=== PATIENT | male | born 1975 | race Caucasian/White ===

== ENCOUNTER 2021-10-09 05:32 | Emergency (ER) | payer OTHER, SELFPAY ==
--- NOTE | ~2021-10-09 | XR_ITS ---
EXAMINATION: XR HAND, LEFT CLINICAL INFORMATION: Middle finger pain COMPARISON: None TECHNIQUE: PA, lateral, and oblique views of the left hand. XR/XR hand LT 2V FINDINGS/IMPRESSION: There is a tiny osseous density adjacent to the volar base of the third middle phalanx, which could reflect a small avulsed fracture fragment; clinical correlation recommended at this site. No additional focal osseous abnormality is seen. Articular alignment throughout the hand is anatomic. No significant focal soft tissue abnormality.
--- NOTE | ~2021-10-09 | CT_ITS ---
EXAMINATION: CT HEAD WITHOUT CONTRAST CLINICAL INFORMATION: Fall, headache COMPARISON: None TECHNIQUE: Contiguous axial imaging was performed from the skull base to vertex without intravenous administration of contrast. This CT examination was performed using dose optimization techniques as appropriate, variously including the following: *Automated exposure control *Adjustment of mA and/or kV according to patient size (this includes techniques or standardized protocols for targeted exams where dose is matched to indication/reason for exam; i.e. extremities or head) *Use of iterative reconstruction technique DLP: 774 mGy-cm FINDINGS: There is no evidence of acute intracranial hemorrhage or territorial infarction. No abnormal mass effect or midline shift is seen. Nunez to white matter differentiation is well preserved. No extra-axial fluid collections are identified. The ventricles are normal in size. There is no abnormal attenuation within the brain parenchyma. The osseous structures and soft tissues are normal. There is slight mucosal thickening of the maxillary sinuses. The mastoid air cells are well-aerated. CT/CT head/brain wo con IMPRESSION: No acute intracranial pathology.
--- NOTE | 2021-10-09 05:52 | PC.NURSE ---
at bedside for primary eval.
--- NOTE | 2021-10-09 05:59 | ED_ITS ---
HPI - General Adult General Chief complaint: Fall Stated complaint: Head/Hand Pain S/P Fall 10/08/21 Time Seen by Provider: 10/09/21 05:50 Source: patient Mode of arrival: ambulatory Limitations: no limitations History of Present Illness HPI narrative: Patient comes to the emergency room complaining of headache after a fall and left hand pain. Patient states that he was walking down the stairs, it was carpeted, slippery, patient felt walking down words, hit the back of his head with the stairs, also states he hurt his middle finger of the left hand. Patient denies losing consciousness, no vomiting. Patient complaining of headache. Patient has not had any medication headache. Patient denies being on blood thinners Related Data Previous Rx's Medication Instructions Recorded ibuprofen 600 mg tablet 600 mg PO Q6H PRN #14 tab 10/09/21 Allergies Allergy/AdvReac Type Severity Reaction Status Date / Time No Known Allergies Allergy Verified 10/09/21 06:08 Review of Systems Review of Systems: Constitutional : No Weight loss, No Fever, No Chills, No Night Sweats, No Fatigue, No Malaise ENT/Mouth : No Hearing loss, No Ear Pain, No Nasal Congestion, No Sinus Pain, No Hoarseness, No sore throat, No Rhinorrhea, No Swallowing Difficulty Eyes: No Eye Pain, No Swelling, No Redness, No Foreign Body, No Discharge, No Vision Changes Cardiovascular : No Chest Pain, No SOB, No Dyspnea on Exertion, No Orthopnea, No Edema, No Palpitations Respiratory : No Cough, No Sputum, No Wheezing, No Smoke Exposure, No Dyspnea Gastrointestinal : No Nausea, No Vomiting, No Diarrhea, No Constipation, No abdominal Pain, No Hematochezia, No Melena Genitourinary : no irregular bleeding, No Dysuria, No Urinary Frequency, No Hematuria, No Urinary Incontinence, No Urgency, No Flank Pain, No Urinary Flow Changes, No Hesitancy Musculoskeletal : Complaining of left middle finger pain after a fall, No Myalgias, No Joint Swelling Skin : No Skin Lesions, No rash Neuro : No Weakness, No Numbness, No Paresthesias, No Loss of Consciousness, No Dizziness, patient complaining of headache after a fall Psych : No Anxiety/Panic, No Depression, No SI/HI/AH/VH, No Social Issues, Heme/Lymph: No Bruising, No Bleeding,No Lymphadenopathy Endocrine : No Polyuria, No Polydipsia, No Temperature Intolerance [facility] Social History Social History Advance Directives: No Advance Directives Information Provided: No Physical Exam Vital Signs: Vital Signs: Last Vital Signs Temp 97.1 F 10/09/21 06:05 Pulse 65 10/09/21 06:05 Resp 18 10/09/21 06:05 BP 136/82 10/09/21 06:05 Pulse Ox 100 10/09/21 06:05 Body Mass Index 24.3 Const: Other: Appearance: Alert. Oriented X3. No acute distress. Eyes: Pupils equal, round and reactive to light. ENT: Pharynx normal. Neck: Normal inspection. Neck supple. No lymph nodes noted. No crepitus, no cervical spine tenderness, no palpable step-offs CVS: Normal heart rate and rhythm. Pulses normal. Normal S1 and S2 Respiratory: No respiratory distress. Breath sounds normal. No Wheezing. No rales Abdomen: Soft and nontender. No rigidity. No distention. Skin: Skin warm and dry. Normal skin color. Normal skin turgor. Extremities: No lower extremity edema. Left middle finger looks slightly swollen, patient able to flex and extend all fingers and wrist. Neuro: Oriented X 3. No motor deficit. No sensory deficit. Moving all extermities. No slurred speech. Course Course Course Narrative: I discussed the CT scan and x-ray findings with the patient, patient may have a small avulsed fracture fragment in the 3rd digit on the left hand. Patient's finger was splinted. Patient instructed to follow-up with orthopedics. Patient states he will likely follow up in [place], [place] close to where he lives. Medical Decision Making Imaging Data Hand x-ray: Radiologist's impression: XR/XR hand LT 2V FINDINGS/IMPRESSION: There is a tiny osseous density adjacent to the volar base of the third middle phalanx, which could reflect a small avulsed fracture fragment; clinical correlation recommended at this site. No additional focal osseous abnormality is seen. Articular alignment throughout the hand is anatomic. No significant focal soft tissue abnormality. CT scan - head: Radiologist's impression: FINDINGS: There is no evidence of acute intracranial hemorrhage or territorial infarction. No abnormal mass effect or midline shift is seen. Nunez to white matter differentiation is well preserved. No extra-axial fluid collections are identified. The ventricles are normal in size. There is no abnormal attenuation within the brain parenchyma. The osseous structures and soft tissues are normal. There is slight mucosal thickening of the maxillary sinuses. The mastoid air cells are well-aerated. ? CT/CT head/brain wo con IMPRESSION: No acute intracranial pathology. Discharge Plan Discharge Clinical Impression: Avulsion fracture of middle phalanx of finger Qualifiers: Encounter type: initial encounter Fracture type: closed Qualified Code(s): S62.629A - Displaced fracture of middle phalanx of unspecified finger, initial encounter for closed fracture Head injury Qualifiers: Encounter type: initial encounter Qualified Code(s): S09.90XA - Unspecified injury of head, initial encounter Patient Disposition: Home, Self-Care Instructions: Acute Headache (ED), Avulsion Fracture (ED) Additional Instructions: Please follow-up with your primary care physician and Orthopedics tomorrow. If you have any worsening or new symptoms, please return to the emergency room or call 911 Prescriptions: New ibuprofen 600 mg tablet 600 mg PO Q6H PRN (Reason: pain) Qty: 14 RF: 0 Referrals: Cynthia Castellanos PA-C [[facility] [employer] [facility]] - 2 days
[2021-10-09 06:01] VITALS: BP 114/83; PULSE 60; RESP 16; TEMP 36.8; O2SAT 100; BMI 24.3
[2021-10-09 06:05] VITALS: BP 136/82; PULSE 65; RESP 18; TEMP 36.2; O2SAT 100; BMI 24.3
[2021-10-09] MEDS: Acetaminophen Oral Liquid 650 MG/20.3 ML SOLUTION PO (06:37)
--- NOTE | 2021-10-09 06:44 | PC.NURSE ---
Splint applied to left middle finger per MD request.
== END 2021-10-09 06:50 | disposition home or self-care (01) ==
PROVIDERS: Emergency Provider Emergency Medicine
DX: S62.623A Displaced fracture of middle phalanx of left middle finger, initial encounter for closed fracture (principal); S09.90XA Unspecified injury of head, initial encounter; W10.8XXA Fall (on) (from) other stairs and steps, initial encounter; R51.9 Headache, unspecified; Y93.9 Activity, unspecified; Y92.9 Unspecified place or not applicable; Y99.9 Unspecified external cause status
CPT/HCPCS: 29130; 70450; 73120; 99283; 99284